=== PATIENT | male | born 1995 | race Caucasian/White ===

== ENCOUNTER 2018-10-23 17:01 | Emergency (ER) | payer OTHER ==
[~2018-10-23] VITALS: Ht 177.8 cm; Wt 102.1 kg
--- NOTE | 2018-10-23 17:03 | NUR ---
CHIN GÓMEZ ALS TO ER BED 08
[2018-10-23 17:05] VITALS: BP 124/76
--- NOTE | 2018-10-23 17:12 | NUR ---
23 yo m bib ems amr als w/ c/o vomiting s/p [facility] brownie ingestion today. pt states that he had a stressful day at work, ate a palm size amount of a marijuana brownie and began vomiting. pt states that, "this is not my usual high. its just different". pt unsure the dosage of the brownie. pt aaox4, gcs 15. cms intact. rr even and unlabored. pt able to ambulate from [facility] to [facility] w/ steady gait. er md notified of pt status. pt father is on the way to the er. hx denies rx denies
[2018-10-23] MEDS ORDERED: ONDANSETRON 4 MG/2 ML VIAL IVP ONE (17:15)
[2018-10-23] MEDS ORDERED: NACL 0.9% 1,000 ML IV ONE (17:15)
--- NOTE | 2018-10-23 17:51 | NUR ---
FAMILY AT BEDSIDE.
--- NOTE | 2018-10-23 18:30 | NUR ---
PT RESTING IN BED ON PHONE. FAMILY AT BEDSIDE. NO DISTRESS NOTED.
[2018-10-23 19:16] VITALS: BP 115/59
== END 2018-10-23 19:17 | disposition home or self-care (01) ==
LOC: MED 17:01
DX: F12.929 Cannabis use, unspecified with intoxication, unspecified (principal); R42 Dizziness and giddiness
CPT/HCPCS: 96361; 96374; 99283; J2405; J7030